=== PATIENT | male | born 1965 | race Caucasian/White ===

== ENCOUNTER 2016-07-17 10:42 | Emergency (ER) | payer OTHER ==
[~2016-07-17] VITALS: Ht 185.4 cm; Wt 63.5 kg
[~2016-07-17 10:42] MED LIST: IBUPROFEN 600600 M1 PO; NORCO 5-325 TA1 EACH PO
[2016-07-17] MEDS ORDERED: NORCO 5-325 TA1 EACH PO (12:45)
[2016-07-17 12:53] VITALS: BP 141/93
== END 2016-07-17 13:01 | disposition home or self-care (01) ==
LOC: ER 10:42
DX: S49.92XA Unspecified injury of left shoulder and upper arm, initial encounter (principal); I10 Essential (primary) hypertension; F17.210 Nicotine dependence, cigarettes, uncomplicated; X58.XXXA Exposure to other specified factors, initial encounter; Y93.72 Activity, wrestling; Y92.89 Other specified places as the place of occurrence of the external cause; Y99.9 Unspecified external cause status

== ENCOUNTER 2018-08-11 17:15 | Emergency (ER) | payer OTHER ==
[~2018-08-11] VITALS: Ht 182.9 cm; Wt 63.5 kg
[2018-08-11 17:16] VITALS: BP 152/100
[2018-08-11] MEDS ORDERED: AMOXICILLIN 50500 MG PO (18:13)
[2018-08-11] MEDS ORDERED: NORCO 5-325 TA1 EACH PO (18:13)
== END 2018-08-11 18:24 | disposition home or self-care (01) ==
LOC: ER 17:15
DX: K08.89 Other specified disorders of teeth and supporting structures (principal); R51 Headache

== ENCOUNTER 2018-08-12 03:49 | Emergency (ER) | payer OTHER ==
[~2018-08-12] VITALS: Ht 182.9 cm; Wt 63.5 kg
[~2018-08-12 03:49] MED LIST changes: +AMOXICILLIN 50500 MG PO
[2018-08-12 03:51] VITALS: BP 135/82
== END 2018-08-12 04:29 | disposition home or self-care (01) ==
LOC: ER 03:49
DX: K02.9 Dental caries, unspecified (principal); I10 Essential (primary) hypertension; F17.210 Nicotine dependence, cigarettes, uncomplicated

== ENCOUNTER 2020-07-12 09:45 | Emergency (ER) | payer OTHER ==
[~2020-07-12] VITALS: Ht 182.9 cm; Wt 68.0 kg
[2020-07-12] MEDS ORDERED: MULTIVITAMINS PO (10:16)
[2020-07-12 10:19] LABS: ABSOLUTE NEUTROPHILS 3.8 thou/uL (1.4-8.2); BASOPHILS 0.7 % (0.0-2.0); EOSINOPHILS 0.6 % (0.0-3.0); HEMATOCRIT 42.9 % (42.0-52.0); HEMOGLOBIN 14.3 gm/dL (14.0-18.0); LYMPHOCYTES 17.3 % (24.0-44.0); MCHC 33.2 g/dL (28.0-37.0); MCV 93.3 fL (80.0-100.0); MONOCYTES 7.3 % (1.0-8.0); PLATELET COUNT 359 thou/uL (150-400); POLYS 74.1 % (36.0-66.0); RDW 13.5 % (10.5-14.5); WBC 5.1 thou/uL (4.0-11.0)
[2020-07-12 10:21] LABS: CALCIUM 8.6 mg/dL (8.5-10.1); CREATININE 0.9 mg/dL (0.7-1.3); POTASSIUM 4.4 mmol/L (3.5-5.1)
[2020-07-12 10:28] LABS: TOTAL BILIRUBIN 0.3 mg/dL (0.2-1.0); TOTAL PROTEIN 7.2 g/dL (6.4-8.2)
[2020-07-12 11:00] VITALS: BP 137/92
== END 2020-07-12 12:53 | disposition home or self-care (01) ==
LOC: ER 09:45
PROVIDERS: Emergency Medicine
DX: K92.1 Melena (principal); R10.12 Left upper quadrant pain; F17.210 Nicotine dependence, cigarettes, uncomplicated; I10 Essential (primary) hypertension; Z98.890 Other specified postprocedural states